=== PATIENT | male | born 1970 | race Caucasian/White ===

== ENCOUNTER 2019-04-28 19:38 | Emergency (ER) | payer BC ==
[2019-04-28 19:52] VITALS: BP 146/78
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
[2019-04-28] MEDS ORDERED: Tetan/Diph/Pertus SYR(Tdap)* 0.5 ML SYR(BOOSTRIX) use SYR IM ONE (20:28)
== END 2019-04-28 21:38 | disposition home or self-care (01) ==
LOC: UCCORT 19:38
DX: S06.0X0A Concussion without loss of consciousness, initial encounter (principal); S00.81XA Abrasion of other part of head, initial encounter; S40.211A Abrasion of right shoulder, initial encounter; S20.311A Abrasion of right front wall of thorax, initial encounter; S70.312A Abrasion, left thigh, initial encounter; S70.311A Abrasion, right thigh, initial encounter; S80.212A Abrasion, left knee, initial encounter; S80.211A Abrasion, right knee, initial encounter; S16.1XXA Strain of muscle, fascia and tendon at neck level, initial encounter; V18.0XXA Pedal cycle driver injured in noncollision transport accident in nontraffic accident, initial encounter; Y93.55 Activity, bike riding; Y92.9 Unspecified place or not applicable
CPT/HCPCS: 70450; 70486; 72125; 90715; 99202; G0463

== ENCOUNTER 2019-10-19 12:32 | Emergency (ER) | payer BC ==
[2019-10-19 13:07] VITALS: BP 118/56
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
== END 2019-10-19 14:13 | disposition home or self-care (01) ==
LOC: UCEAST 12:32
DX: J02.9 Acute pharyngitis, unspecified (principal); R05 Cough; R09.82 Postnasal drip; J34.89 Other specified disorders of nose and nasal sinuses
CPT/HCPCS: 87651; 99212; G0463